=== PATIENT | female | born 1970 | race Caucasian/White ===

== ENCOUNTER 2018-01-03 19:21 | Emergency (ER) | payer BC, OTHER ==
[~2018-01-03] VITALS: Ht 157.5 cm; Wt 104.3 kg
[2018-01-03] MEDS ORDERED: CHLORTHALIDONE25 MG PO (19:32)
[2018-01-03] MEDS ORDERED: NEXIUM40 MG PO (19:32)
[2018-01-03] MEDS ORDERED: ZANTAC 150MG T150 MG PO (19:33)
[2018-01-03] MEDS ORDERED: SYNTHROID100 MC1 PO (19:33)
[2018-01-03] MEDS ORDERED: LOPRESSOR25 PO (19:33)
[2018-01-03] MEDS ORDERED: LOPRESSOR50 PO (19:33)
[2018-01-03] MEDS ORDERED: ZOLOFT50 MG PO (19:34)
[2018-01-03] MEDS ORDERED: MEDROXYPROGESTER5 MG PO (19:34)
[2018-01-03] MEDS ORDERED: ESTRADIOL 1 MG T1 M1 PO (19:34)
[2018-01-03] MEDS ORDERED: BACTRIM DS TAB1 EACH PO (19:35)
[2018-01-03 20:09] LABS: ABSOLUTE BASOPHILS 0.1 thou/uL (0.0-0.2); ABSOLUTE EOSINOPHILS 0.1 thou/uL (0.0-0.7); ABSOLUTE LYMPHOCYTES 1.2 thou/uL (0.8-5.3); ABSOLUTE MONOCYTES 0.5 thou/uL (0.0-1.2); ABSOLUTE NEUTROPHILS 3.3 thou/uL (1.6-8.1); BASOPHILS 1.1 %; EOSINOPHILS 2.3 %; HEMOGLOBIN 13.8 gm/dL (12.0-15.0); LYMPHOCYTES 23.4 %; MCH 27.8 pg (26.0-34.0); MCHC 33.5 g/dL (28.0-37.0); MCV 82.9 fL (80.0-100.0); MONOCYTES 9.4 %; MPV 8.7 fl. (7.2-11.1); NUCLEATED RBCS 0 /100WBC; PLATELET COUNT* 310 thou/uL (150-400); POLYS 63.8 %; RBC 4.95 mil/uL (4.20-5.00); RDW-CV 14.2 % (10.5-14.5); WBC 5.2 thou/uL (4.0-11.0)
[2018-01-03 20:13] LABS: CALCIUM 8.8 mg/dL (8.5-10.1); CREATININE 0.9 mg/dL (0.6-1.3); POTASSIUM 3.3 mmol/L (3.5-5.1)
[2018-01-03 20:17] LABS: ALBUMIN 4.1 g/dL (3.4-5.0); TOTAL BILIRUBIN 0.3 mg/dL (<0.1-1.0); TOTAL PROTEIN 8.7 g/dL (6.4-8.2)
[2018-01-03 20:44] LABS: URINE BILIRUBIN NEGATIVE (Negative); URINE BLOOD NEGATIVE (Negative); URINE CLARITY CLEAR; URINE COLOR YELLOW; URINE GLUCOSE-RANDOM NEGATIVE (Negative); URINE KETONES 1+ (Negative); URINE LEUKOCYTES-REFLEX NEGATIVE (Negative); URINE NITRITE-REFLEX NEGATIVE (Negative); URINE PROTEIN NEGATIVE (Negative); URINE UROBILINOGEN 0.2 E.U./dl (0.2-1.0)
[2018-01-03] MEDS ORDERED: MACROBID 100 M100 M1 PO (20:55)
[2018-01-03] MEDS ORDERED: PHENAZOPYRIDIN200 M2 PO (20:55)
[2018-01-03 21:04] VITALS: BP 134/71
--- NOTE | 2018-01-04 10:28 | EKG ---
[place] [address] ELECTROCARDIOGRAM REPORT Name: BRENT RUBIO [id number] Admission: 01/03/18 Attend Phys: Discharge: 01/03/18 Date of : 66 Report #: [id number] THIS REPORT FOR: //name// [facility] ED Test Date: 2018-01-03 Test Time: 19:39:32 Pat Name: BRENT RUBIO Department: Room: Gender: F [employer]ist: VU : 1970 Requested By: Cecille Curran Order Number: [id number] MD: Yonis Razo Measurements Intervals [place] Rate: 73 P: 45 WA: 177 QRS: 11 QRSD: 93 T: 19 QT: 389 QTc: 429 Interpretive Statements Sinus rhythm No previous ECG available for comparison Electronically Signed On 01-04-2018 10:28:19 CDT by Yonis Razo [email or web address] <ELECTRONICALLY SIGNED> By: Yonis Razo MD, [facility] 01/04/18 1028 1939 1939 Yonis Razo MD, FACC /EPI
== END 2018-01-03 21:04 | disposition home or self-care (01) ==
LOC: M.ERS 19:21
PROVIDERS: Emergency Medicine; Nurse Practitioner
DX: N39.0 Urinary tract infection, site not specified (principal); R42 Dizziness and giddiness; R11.2 Nausea with vomiting, unspecified; Z96.653 Presence of artificial knee joint, bilateral